=== PATIENT | female | born 2005 | race Caucasian/White ===

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

== ENCOUNTER 2023-09-10 12:52 | Emergency (ER) | payer BC, SELFPAY ==
[2023-09-10 13:22] VITALS: BP 124/60; PULSE 130; RESP 16; TEMP 38.1; O2SAT 97
--- NOTE | 2023-09-10 13:31 | ED.FEVER ---
HPI - Fever General Chief Complaint: Fever Stated Complaint: fever cough Time Seen by Provider: 09/10/23 17:54 Source: patient and family (mother) Mode of arrival: ambulatory Limitations: no limitations History of Present Illness HPI Narrative: Patient is a 18-year-old female without any significant past medical history presents emergency department today ambulatory with a steady gait with her mother for evaluation of viral symptoms. She had fever, cough, body aches for the last 6 days. She was coughing things up and now she is not. She did take DayQuil NyQuil last night. She had 1 episode of vomiting but thinks that because of the medicine. She states that her little sister did test positive for influenza B. She tried to go to an urgent care but was not able to & she has not had any Tylenol or Motrin today. Denies any chest pain or shortness of breath. Denies any abdominal pain. denies urinary symptoms. still able to eat and drink. Denies any sore throat. Related Data Home Medications Medication Instructions Recorded Confirmed loratadine 10 mg tablet (Claritin) 10 mg PO DAILY 01/21/22 01/21/22 norethindrone 1 mg-e. estradiol 20 1 tablet PO DAILY 01/21/22 01/21/22 mcg (24)-iron 75 mg (4) chew tablet (Eliza 24 Fe) Allergies Allergy/AdvReac Type Severity Reaction Status Date / Time No Known Allergies Allergy Verified 01/21/22 11:44 Review of Systems Review of Systems: CONSTITUTIONAL: + fever, chills, generalized fatigue/aches EYES: Denies visual changes, redness, or discharge. ENT: +congestion. denies sore throat. denies ear pain CARDIOVASCULAR: Denies chest pain, palpitations, or edema. RESPIRATORY:+cough. denies dyspnea. GASTROINTESTINAL: Denies abdominal pain, nausea, vomiting, or diarrhea. GENITOURINARY: Denies dysuria or hematuria. SKIN: Denies rash or itching. MUSCULOSKELETAL: Denies back pain, joint pain NEUROLOGIC: Denies headache, numbness, or weakness. PSYCHIATRIC: Denies anxiety or depression. All systems reviewed & are unremarkable except as noted in HPI and below Exam Narrative: BRIEF FOCUSED EXAM: sitting up on exam stretcher, respirations regular and non-labored, no acute distress noted. She is tachycardic. Course Vital Signs Vital signs: Vital Signs Temperature 100.6 F H 09/10/23 13:22 Pulse Rate 130 H 09/10/23 13:22 Respiratory Rate 16 09/10/23 13:22 Blood Pressure 124/60 09/10/23 13:22 Pulse Oximetry 97 09/10/23 13:22 Oxygen Delivery Room Air 09/10/23 13:22 Temperature 97.4 F L 09/10/23 17:58 Pulse Rate 94 09/10/23 17:58 Respiratory Rate 20 09/10/23 17:58 Blood Pressure 124/60 09/10/23 13:22 Pulse Oximetry 100 09/10/23 17:58 Oxygen Delivery Room Air 09/10/23 13:22 MDM - Fever MDM Narrative Medical decision making narrative: symptoms appear viral, will obtain viral swab and administer motrin for temp Viral swab negative. Lungs were clear, do not feel like chest x-ray is warranted at this time. Patient on re-examination was resting without any distress. Temperature improved, heart rate improved. We discussed supportive care measures for still like this. Patient is nontoxic in appearance. Stable re-evaluation exam just before discharge. Patient in no acute distress. Vitals within normal limits. Discussed statement Differential Diagnosis Differential diagnosis: Likely viral infection Medical Records Attestation: I reviewed the patient's medical records. Lab Data Attestation: I reviewed the patient's lab results. Labs: Lab Results 09/10/23 Range/Units 13:27 Influenza A (RT-PCR) Negative (Negative) Influenza B (RT-PCR) Negative (Negative) RSV (RT-PCR) Negative (Negative) SARS-CoV-2 RNA (RT-PCR) Negative (Negative) Discharge Plan Discharge Clinical Impression: Acute viral syndrome Fever Qualifiers: Encounter type: initial encounter Patient Disposition: Home, Self-Care Con
[2023-09-10] MEDS: IBUPROFEN 600 MG TABLET PO (14:21)
[2023-09-10 14:35] LABS: Influenza A QL RT-PCR Negative (Negative); Influenza B QL RT-PCR Negative (Negative); RSV RNA, RT-PCR Negative (Negative); SARS-CoV-2 RNA PCR Negative (Negative)
[2023-09-10 17:58] VITALS: PULSE 94; RESP 20; TEMP 36.3; O2SAT 100
== END 2023-09-10 18:01 | disposition home or self-care (01) ==
PROVIDERS: Emergency Provider Nurse Practitioner; PCP Pediatrics
DX: B34.9 Viral infection, unspecified (principal); Z20.822 Contact with and (suspected) exposure to COVID-19
CPT/HCPCS: 87637; 99283; A9270